=== PATIENT | female | born 1960 | race Caucasian/White ===

== ENCOUNTER 2023-07-11 13:54 | Emergency (ER) | payer OTHER, MEDICAID, SELFPAY ==
[2023-07-11 14:28] VITALS: BP 154/80; PULSE 77; RESP 16; TEMP 36.3; O2SAT 98; BMI 34.3
[2023-07-11 16:30] VITALS: BP 199/87; PULSE 74; RESP 18; TEMP 36.6; O2SAT 97
--- NOTE | 2023-07-11 17:10 | ED.BACK ---
HPI - Back Pain/Injury <Claudia Patterson PA-C - Last Filed: 07/12/23 13:42> General Chief Complaint: Back Pain/Injury Stated Complaint: sciatca pain, coughing Time Seen by Provider: 07/11/23 16:33 Source: patient History of Present Illness HPI Narrative: Patient is a 62 year old female who presents with 1 week of low back pain with right-sided sciatica and 3 months of a productive cough. She is currently unhoused and is living with her son and his 2 children. She sleeps in the same room as her 2 grandchildren who are frequently ill. She denies fever or chills, runny nose or congestion. Her cough is somewhat productive. She reports she is not a smoker except for marijuana and has no history of lung disease. Her back pain is likely related to carrying her 30 lb nonverbal autistic grandson who often struggles in her arms. She has tried rest, ice and stretching but the pain has not relented. She denies loss of bowel or bladder control or saddle anesthesia. She has sciatic radiculopathy in her right leg. Related Data Previous Rx's Medication Instructions Recorded cyclobenzaprine 5 mg tablet 5 mg PO TID PRN muscle spasm #10 07/11/23 tabs prednisone 20 mg tablet 40 mg (2 x 20 mg) PO DAILY #8 tabs 07/11/23 Allergies Allergy/AdvReac Type Severity Reaction Status Date / Time No Known Drug Allergies Allergy Verified 07/11/23 14:28 Review of Systems <Claudia Patterson PA-C - Last Filed: 07/12/23 13:42> Review of Systems ROS Unobtainable: All systems reviewed & are unremarkable except as noted in HPI and below Patient History <Claudia Patterson PA-C - Last Filed: 07/12/23 13:42> Social History Smoking Status: Former smoker Smoking Status: Former smoker Substance Use Type: marijuana Exam <Claudia Patterson PA-C - Last Filed: 07/12/23 13:42> Narrative Exam Narrative: GENERAL: 62 year old patient appears stated age. Well-developed patient, in no distress. NEURO: AOx3. HEAD: Atraumatic. Normocephalic. EYES: Pupils equal round and reactive. Extraocular motions intact. No scleral icterus. No injection or drainage. ENT: Nose without bleeding or purulent drainage. Airway patent. NECK: Trachea midline. Non tender CARDIOVASCULAR: Regular rate and rhythm without murmurs, gallops, or rubs. RESPIRATORY: Clear to auscultation. Breath sounds equal bilaterally. No wheezes, rales, or rhonchi. Patient has a wheezy cough. GASTROINTESTINAL: Abdomen soft, non-tender, nondistended. SPINE: No midline spinal tenderness but tender to palpation over the right SI joint and paraspinals. She is able to ambulate well and has a normal neurovascular exam in both lower extremities. EXTREMITIES: No edema or joint tenderness. SKIN: No rash or erythema of visible areas Initial Vital Signs Initial Vital Signs: Vital Signs Temperature 97.4 F L 07/11/23 14:28 Pulse Rate 77 07/11/23 14:28 Respiratory Rate 16 07/11/23 14:28 Blood Pressure 154/80 H 07/11/23 14:28 Pulse Oximetry 98 07/11/23 14:28 Oxygen Delivery Method Room Air 07/11/23 14:28 <Phyllis Parra DO - Last Filed: 07/13/23 07:32> Initial Vital Signs Initial Vital Signs: Vital Signs Temperature 97.4 F L 07/11/23 14:28 Pulse Rate 77 07/11/23 14:28 Respiratory Rate 16 07/11/23 14:28 Blood Pressure 154/80 H 07/11/23 14:28 Pulse Oximetry 98 07/11/23 14:28 Oxygen Delivery Method Room Air 07/11/23 14:28 Course <Claudia Patterson PA-C - Last Filed: 07/12/23 13:42> Orders Ordered: Discontinued Medications Prednisone (Prednisone 20 Mg Tablet) 40 mg PO NOW ONE Stop: 07/11/23 17:11 Last Admin: 07/11/23 17:45 Dose: 40 mg Documented By: RLS Vital Signs Vital signs: Vital Signs - 8 hr 07/11/23 14:28 07/11/23 16:30 Temperature 97.4 F L 97.9 F Pulse Rate 77 74 Respiratory Rate 16 18 Blood Pressure 154/80 H 199/87 H Pulse Oximetry 98 97 Oxygen Delivery Method Room Air Room Air <DO Judit Rowe Last Filed: 07/13/23 07:32> Orders Ordered: Discontinued Medications Prednisone (Prednisone 20 Mg Tablet) 40 mg PO NOW ONE Stop: 07/11/23 17:11 Last Admin: 07/11/23 17:45 Dose: 40 mg Documented By: URIEL Vital Signs Vital signs: Vital Signs - 8 hr 07/11/23 14:28 07/11/23 16:30 Temperature 97.4 F L 97.9 F Pulse Rate 77 74 Respiratory Rate 16 18 Blood Pressure 154/80 H 199/87 H Pulse Oximetry 98 97 Oxygen Delivery Method Room Air Room Air MDM - Back Pain/Injury <Claudia Patterson PA-C - Last Filed: 07/12/23 13:42> Imaging Data Chest x-ray: Radiologist's Impression: PROCEDURE: XR CHEST 1V INDICATIONS: cough x3 months TECHNIQUE: One view of the chest was acquired. COMPARISON: None. FINDINGS: Surgical changes and devices: None. Lungs and pleura: Lungs are clear. No pleural effusions or pneumothorax. Mediastinum: Mediastinal contours appear normal. Heart size is normal. Bones and chest wall: No suspicious bony lesions. Overlying soft tissues appear unremarkable. IMPRESSION: No acute cardiopulmonary abnormality is seen. Dictated by: Vidal Luna M.D. on 07/11/2023 at 17:43 Approved by: Vidal Luna M.D. on 07/11/2023 at 17:43 MDM Narrative Medical decision making narrative: Multiple etiologies for patient's symptoms considered including, but not limited to: Musculoskeletal low back pain. Concern for possible pneumonia versus other lung disease versus post viral cough. Patient's history physical examination is very consistent with musculoskeletal low back pain. Patient education provided regarding care of low back pain. Discussed supportive care of low back injuries to include rest, stretching, ice, NSAIDs, possibly physical therapy if not recovering with conservative management. Prescription for short course of steroids and muscle relaxers given. Discussed appropriate use of these. Described expected course for recovery which is 4-6 weeks. Stretching handout provided. Emphasized the importance of staying active, even if it is just to walk around the block and complete gentle stretching. Reviewed return precautions including loss of control of bowel or bladder or saddle anesthesia. Chest x-ray without evidence of pneumonia. Patient without hypoxia or tachypnea. Suggested continued supportive care and monitoring. Follow up with primary care. Patient's symptoms improved over duration of stay with above-stated therapies. Findings and discharge diagnosis discussed with patient/family followed by verbalization of understanding Return precautions discussed with patient/family whom verbalize understanding of diagnosis and plan Discharge Plan Departure Patient Disposition: Home Clinical Impression: Low back pain Qualifiers: Chronicity: acute Back pain laterality: right Sciatica presence: with sciatica Sciatica laterality: sciatica of right side Qualified Code(s): M54.41 - Lumbago with sciatica, right side Instructions: DI for Back Pain With Sciatica Activity Restrictions/Additional Instructions: *You have been diagnosed with low back pain with sciatica. We also got an x-ray of your chest to rule out pneumonia and there is no evidence of pneumonia on your chest x-ray. As we discussed, I will prescribe you also relaxants and a short course of oral steroids to decrease inflammation which will hopefully help to start your recovery from this back injury. I will place a referral to physical therapy. You should call them to schedule an appointment. *What to do: *Please continue to take your regular medications as directed. [x] New medication prescriptions sent to your pharmacy: [facility] [ ] New medication written as a paper prescription [ ] No new medications given *Please follow up with your primary care provider in 2-3 days, call for an appointment. Let them know you were seen in the Emergency Department and that we ask that you be seen in follow up. We will electronically transmit a record of today's note if your PCP is in our system *If you do not have a primary care provider please contact the [facility] Resource line at [phone]. They will ask some questions about your medical history and help get you set up with a doctor in the community. *Return to Emergency Department if you should have any new, worsening or concerning symptoms, such as [fever greater than 101 F, shaking chills, worsening pain, persistent vomiting or other concerning symptoms]. Prescriptions: New prednisone 20 mg tablet 40 mg PO DAILY Qty: 8 0RF cyclobenzaprine 5 mg tablet 5 mg PO TID PRN (Reason: muscle spasm) Qty: 10 0RF Referrals: [facility] [Outside] Stand Alone Forms: Patient Portal/API ED Sign-out <Phyllis Parra, - Last Filed: 07/13/23 07:32> Cosign ED Attending Kary Attestation: I was immediately available in the department for consultation.
[2023-07-11] MEDS: predniSONE 20 MG TABLET 40 MG PO (17:45)
[2023-07-11 18:16] VITALS: BP 159/83; PULSE 77; RESP 18; O2SAT 93
== END 2023-07-11 18:26 | disposition home or self-care (01) ==
PROVIDERS: Emergency Provider Physician Assistant
DX: M54.41 Lumbago with sciatica, right side (principal); R05.9 Cough, unspecified
CPT/HCPCS: 71045; 99283

== ENCOUNTER 2023-11-14 01:58 | Emergency (ER) | payer OTHER, MEDICAID, SELFPAY ==
[2023-11-14 01:58] VITALS: BP 142/90; PULSE 91; RESP 15; TEMP 37.2; O2SAT 95; BMI 34.3
[2023-11-14] MEDS: KETOROLAC 30 MG/ML VIAL IM (02:14)
[2023-11-14] MEDS: HYDROMORPHONE 1 MG INJ IM (02:15)
--- NOTE | 2023-11-14 02:16 | ED.BACK ---
HPI - Back Pain/Injury General Chief Complaint: Back Pain/Injury Stated Complaint: Back Pain Time Seen by Provider: 11/14/23 02:04 Source: patient, EMS and old records reviewed Mode of arrival: EMS Limitations: no limitations History of Present Illness HPI Narrative: Patient is a 63-year-old female who is brought in by EMS for evaluation of left knee pain, right lower back pain and sciatic to her right leg. She states she has been having issues with osteoarthritis in her left knee. She states that the discomfort in her knee causes her to walk differently which then causes the lower back pain in the sciatic pain in her right leg. She was seen a couple days ago by her primary doctor. Was given a shot of Toradol. States that her symptoms did improve but then has the medicine has worn off she has had more discomfort. She does take meloxicam at home but does not think that is helping all that much. There is a referral for her to see Physical therapy. She has not seen orthopedics. She arrives in the emergency department by EMS for evaluation of the back and leg discomfort. She reports no new falls. Has a same discomfort that she has had in the past. Related Data Previous Rx's Medication Instructions Recorded cyclobenzaprine 5 mg tablet 5 mg PO TID PRN muscle spasm #10 07/11/23 tabs prednisone 20 mg tablet 40 mg (2 x 20 mg) PO DAILY #8 tabs 07/11/23 hydrocodone 5 mg-acetaminophen 325 1 tab PO Q4-6H PRN pain #10 tabs 11/14/23 mg tablet Allergies Allergy/AdvReac Type Severity Reaction Status Date / Time No Known Drug Allergies Allergy Verified 11/14/23 02:15 Review of Systems Musculoskeletal Musculoskeletal: Reports system reviewed and no additional complaints, except as documented Integumentary/Breasts Skin/Breast: Reports system reviewed and no additional complaints, except as documented Neurologic Neurologic: Reports system reviewed and no additional complaints, except as documented Patient History Social History Smoking Status: Former smoker Smoking Status: Former smoker Substance Use Type: marijuana Exam Initial Vital Signs Initial Vital Signs: Vital Signs Temperature 98.9 F 11/14/23 01:58 Pulse Rate 91 H 11/14/23 01:58 Respiratory Rate 15 11/14/23 01:58 Blood Pressure 142/90 H 11/14/23 01:58 Pulse Oximetry 95 11/14/23 01:58 Oxygen Delivery Method Room Air 11/14/23 01:58 Const General: cooperative and comfortable Neuro Sensory Exam: no sensory deficits noted Extrem General: normal to inspection Other: No gross deformities Course Orders Ordered: Discontinued Medications Hydromorphone HCl (Hydromorphone 1 Mg Inj) 1 mg IV NOW ONE Stop: 11/14/23 02:07 Last Admin: 11/14/23 02:38 Dose: Not Given Hydromorphone HCl (Hydromorphone 1 Mg Inj) 1 mg IM NOW ONE Stop: 11/14/23 02:14 Last Admin: 11/14/23 02:15 Dose: 1 mg Documented By: SB Ketorolac Tromethamine (Ketorolac 30 Mg/Ml Vial) 30 mg IM NOW ONE Stop: 11/14/23 02:07 Last Admin: 11/14/23 02:14 Dose: 30 mg Documented By: SB Vital Signs Vital signs: Vital Signs - 8 hr 11/14/23 01:58 11/14/23 02:58 11/14/23 03:37 Temperature 98.9 F Pulse Rate 91 H 73 76 Respiratory Rate 15 20 20 Blood Pressure 142/90 H 155/68 H 139/64 Pulse Oximetry 95 93 93 Oxygen Delivery Method Room Air Room Air Room Air MDM - Back Pain/Injury MDM Narrative Medical decision making narrative: Symptoms she presents with are not necessarily new there does worse over the past day or so. She has been taking her meloxicam without much improvement. She was given pain medications and Toradol here in the ER. No indication for radiologic studies. She was going to need follow-up with her primary doctor and also Orthopedic surgery. Will discharge home with a prescription for short course of some oral pain medication. Discharge Plan Departure Patient Disposition: Home Clinical Impression: Sciatica, Osteoarthritis Instructions: DI for Low Back Pain, DI for Arthritis Activity Restrictions/Additional Instructions: It is important that you continue to take all of your medications as directed. The pain medication that you are prescribed today is for breakthrough discomfort. You do need follow-up with your primary doctor and also follow up with the physical therapy providers as well. Prescriptions: New hydrocodone-acetaminophen 5-325 mg tablet 1 tab PO Q4-6H PRN (Reason: pain) Qty: 10 0RF No Action prednisone 20 mg tablet 40 mg PO DAILY Qty: 8 0RF cyclobenzaprine 5 mg tablet 5 mg PO TID PRN (Reason: muscle spasm) Qty: 10 0RF Referrals: Loreta Escalera MD [Primary Care Provider] - Stand Alone Forms: Patient Portal/API
[2023-11-14 02:58] VITALS: BP 155/68; PULSE 73; RESP 20; O2SAT 93
[2023-11-14 03:37] VITALS: BP 139/64; PULSE 76; RESP 20; O2SAT 93
== END 2023-11-14 04:22 | disposition home or self-care (01) ==
PROVIDERS: Emergency Provider Emergency Medicine; PCP Family Medicine
DX: M54.41 Lumbago with sciatica, right side (principal); M17.12 Unilateral primary osteoarthritis, left knee
CPT/HCPCS: 96372; 99283; J1170; J1885

== ENCOUNTER → 2023-12-19 10:45 | Outpatient (CLI) | payer OTHER, MEDICAID, SELFPAY | PROVIDERS: PCP Physician Assistant Medical; Referring Provider Internal Medicine Pulmonary Disease; Visit Provider Internal Medicine Pulmonary Disease | DX: R06.09 Other forms of dyspnea (principal); J98.8 Other specified respiratory disorders | CPT/HCPCS: 94060; 94618; 94726; 94729 ==